=== PATIENT | male | born 1935 | race Caucasian/White ===

== ENCOUNTER → 2020-12-26 | Outpatient (CLI) | payer MEDICARE ==
[~2020-12-26] MED LIST: ASPIRIN EC81 MG PO; AZITHROMYCIN250 MG PO; DECADRON6 MG PO; FLOMAX0.4 MG PO; GLIPIZIDE5 MG PO; HYDROCODON-ACE1 EAC4 PO; LEVOTHYROXINE50 MC1 PO; LOVASTATIN20 MG PO; METFORMIN HCL1000 MG PO; METOPROLOL TAR100 MG PO; OMNICEF 300 MG300 MG PO; PROTONIX 40 MG40 M1 PO; PROTONIX40 MG PO; REMERON15 MG PO; TRAZODONE HCL50 MG PO; VENTOLIN HFA 66.7 GM INH; VITAMIN C 500500 MG PO
== END ==
LOC: LBRF 20:05
DX: Z53.8 Procedure and treatment not carried out for other reasons (principal)
CPT/HCPCS: 87081; 87880

== ENCOUNTER 2020-12-29 21:33 | Inpatient (IN) | payer MEDICARE ==
[~2020-12-29] VITALS: Ht 180.3 cm; Wt 83.9 kg
[2020-12-29 22:56] LABS: HEMOGLOBIN 10.5 gm/dl (14.0-17.5); RED BLOOD COUNT 4.13 M/UL (4.20-5.50); WHITE BLOOD COUNT 4.1 K/UL (4.5-11.0)
[2020-12-30 06:40] LABS: HEMOGLOBIN 10.6 gm/dl (14.0-17.5); RED BLOOD COUNT 4.17 M/UL (4.20-5.50)
[2020-12-30 06:43] LABS: WHITE BLOOD COUNT 6.4 K/UL (4.5-11.0)
[2020-12-30] MEDS ORDERED: METFORMIN HCL1000 MG PO (11:03)
[2020-12-30] MEDS ORDERED: METOPROLOL TAR100 MG PO (11:04)
[2020-12-30] MEDS ORDERED: LOVASTATIN20 MG PO (11:04)
[2020-12-30] MEDS ORDERED: LEVOTHYROXINE50 MC1 PO (11:04)
[2020-12-30] MEDS ORDERED: HYDROCODON-ACE1 EAC4 PO (11:04)
[2020-12-30] MEDS ORDERED: ASPIRIN EC81 MG PO (11:05)
[2020-12-30] MEDS ORDERED: AZITHROMYCIN250 MG PO (13:14)
[2020-12-30] MEDS ORDERED: OMNICEF 300 MG300 MG PO (13:15)
[2020-12-30] MEDS ORDERED: DECADRON6 MG PO (13:15)
[2020-12-30] MEDS ORDERED: PROTONIX40 MG PO (13:17)
[2020-12-30] MEDS ORDERED: VITAMIN C 500500 MG PO (13:17)
[2020-12-30] MEDS ORDERED: VENTOLIN HFA 66.7 GM INH (13:17)
== END 2020-12-30 15:17 | disposition left against medical advice (07) | DRG 177 ==
LOC: ER1 21:33 → CDU 23:06 → MED SURG 4 23:06
PROVIDERS: Internal Medicine; Physician Assistant; ADMIT Internal Medicine
PROC: 8E0ZXY6 Isolation (ICD-10-PCS; principal; 2020-12-29)
PROC: XW033E5 Introduction of Remdesivir Anti-infective into Peripheral Vein, Percutaneous Approach, New Technology Group 5 (ICD-10-PCS; 2020-12-29)
PROC: 3E0333Z Introduction of Anti-inflammatory into Peripheral Vein, Percutaneous Approach (ICD-10-PCS; 2020-12-30)
DX: U07.1 COVID-19 (principal); J12.82 Pneumonia due to coronavirus disease 2019; J96.01 Acute respiratory failure with hypoxia; J15.9 Unspecified bacterial pneumonia; I26.99 Other pulmonary embolism without acute cor pulmonale; D68.69 Other thrombophilia; N17.9 Acute kidney failure, unspecified; E87.1 Hypo-osmolality and hyponatremia; J44.0 Chronic obstructive pulmonary disease with (acute) lower respiratory infection; J44.1 Chronic obstructive pulmonary disease with (acute) exacerbation; E44.0 Moderate protein-calorie malnutrition; E87.2 Acidosis; N18.9 Chronic kidney disease, unspecified; E11.22 Type 2 diabetes mellitus with diabetic chronic kidney disease; D50.9 Iron deficiency anemia, unspecified; E03.9 Hypothyroidism, unspecified; I25.10 Atherosclerotic heart disease of native coronary artery without angina pectoris; D69.6 Thrombocytopenia, unspecified; E11.40 Type 2 diabetes mellitus with diabetic neuropathy, unspecified; I12.9 Hypertensive chronic kidney disease with stage 1 through stage 4 chronic kidney disease, or unspecified chronic kidney disease; Z82.49 Family history of ischemic heart disease and other diseases of the circulatory system; Z68.25 Body mass index [BMI] 25.0-25.9, adult; Z95.1 Presence of aortocoronary bypass graft; Z79.84 Long term (current) use of oral hypoglycemic drugs
CPT/HCPCS: 36415; 36600; 71045; 71275; 80053; 82550; 82553; 82607; 82728; 82746; 82803; 82962; 83036; 83540; 83550; 83615; 83874; 84484; 85025; 85027; 85045; 85379; 86140; 87040; 87070; 87081; 87205; 87880; 93005; 99285; C9113; G0378; J0696; J1100; J1650; J7030; Q9967

== ENCOUNTER 2021-01-08 15:28 | Emergency (ER) | payer MEDICARE, MEDICAID ==
[~2021-01-08 15:28] MED LIST changes: -FLOMAX0.4 MG PO; -GLIPIZIDE5 MG PO; -PROTONIX 40 MG40 M1 PO; -REMERON15 MG PO; -TRAZODONE HCL50 MG PO
[2021-01-08 16:26] LABS: HEMOGLOBIN 12.6 gm/dl (14.0-17.5); RED BLOOD COUNT 4.97 M/UL (4.20-5.50); WHITE BLOOD COUNT 12.8 K/UL (4.5-11.0)
== END 2021-01-08 20:55 | disposition other institution (70) ==
LOC: ER1 15:28
PROVIDERS: Emergency Medicine
DX: A41.9 Sepsis, unspecified organism (principal); U07.1 COVID-19; J12.82 Pneumonia due to coronavirus disease 2019; E11.65 Type 2 diabetes mellitus with hyperglycemia; E87.1 Hypo-osmolality and hyponatremia; I25.10 Atherosclerotic heart disease of native coronary artery without angina pectoris; I10 Essential (primary) hypertension; Z95.1 Presence of aortocoronary bypass graft
CPT/HCPCS: 36600; 71045; 80053; 82550; 82553; 82803; 83605; 83874; 83880; 84484; 85025; 87040; 93005; 94640; 94664; 96374; 96375; 99285; J0692; J1100; J3370; J7050

== ENCOUNTER 2021-01-20 13:57 | Inpatient (IN) | payer MEDICARE, MEDICAID ==
[~2021-01-20] VITALS: Ht 177.8 cm; Wt 42.4 kg
[2021-01-20 14:31] LABS: HEMOGLOBIN 9.3 gm/dl (14.0-17.5); RED BLOOD COUNT 3.59 M/UL (4.20-5.50); WHITE BLOOD COUNT 12.3 K/UL (4.5-11.0)
[2021-01-20] MEDS ORDERED: REMERON15 MG PO (20:31)
[2021-01-20] MEDS ORDERED: GLIPIZIDE5 MG PO (20:33)
[2021-01-20 20:52] LABS: RED BLOOD COUNT 3.17 M/UL (4.20-5.50); WHITE BLOOD COUNT 7.2 K/UL (4.5-11.0)
[2021-01-21 03:28] LABS: HEMOGLOBIN 8.6 gm/dl (14.0-17.5); RED BLOOD COUNT 3.24 M/UL (4.20-5.50)
[2021-01-21 03:29] LABS: WHITE BLOOD COUNT 5.3 K/UL (4.5-11.0)
[2021-01-21 04:06] LABS: BUN/CREATININE RATIO 54 (0-10)
[2021-01-21 08:20] LABS: HEMOGLOBIN 8.3 gm/dl (14.0-17.5); RED BLOOD COUNT 3.15 M/UL (4.20-5.50)
[2021-01-21 13:51] LABS: HEMOGLOBIN 8.1 gm/dl (14.0-17.5); RED BLOOD COUNT 3.05 M/UL (4.20-5.50)
[2021-01-21 13:52] LABS: WHITE BLOOD COUNT 6.6 K/UL (4.5-11.0)
[2021-01-21 20:32] LABS: HEMOGLOBIN 7.1 gm/dl (14.0-17.5); WHITE BLOOD COUNT 7.7 K/UL (4.5-11.0)
[2021-01-21 20:38] LABS: RED BLOOD COUNT 2.69 M/UL (4.20-5.50)
[2021-01-22 02:43] LABS: HEMOGLOBIN 7.7 gm/dl (14.0-17.5); RED BLOOD COUNT 2.88 M/UL (4.20-5.50); WHITE BLOOD COUNT 9.5 K/UL (4.5-11.0)
[2021-01-22 04:31] LABS: BUN/CREATININE RATIO 53 (0-10)
--- NOTE | 2021-01-22 06:12 | NUR ---
0350 PT ARRIVED TO ICU 0400 MD HALE AT BEDSIDE, VERBAL ORDER TO TITRATE LEVO TO 30. ORDERS PLACED FOR LABS. ORDERS TO MAINTAIN SBP > 120. 0510 MD HALE AWARE OF RECENT LABS (LACTIC, HGB). ORDERS TO STOP IVF AND TO MAINTAIN MAP > 65.
--- NOTE | 2021-01-22 06:28 | NUR ---
SEE PAPER CHART FOR Q15M VS.
[2021-01-22 06:47] LABS: HEMOGLOBIN 7.6 gm/dl (14.0-17.5)
[2021-01-22 09:50] LABS: HEMOGLOBIN 10.1 gm/dl (14.0-17.5)
[2021-01-22 11:43] LABS: HEMOGLOBIN 9.9 gm/dl (14.0-17.5)
[2021-01-22 15:09] LABS: HEMOGLOBIN 9.7 gm/dl (14.0-17.5)
[2021-01-22 18:44] LABS: HEMOGLOBIN 9.8 gm/dl (14.0-17.5)
[2021-01-23 05:28] LABS: HEMOGLOBIN 9.6 gm/dl (14.0-17.5)
[2021-01-23 05:29] LABS: RED BLOOD COUNT 3.39 M/UL (4.20-5.50)
[2021-01-23 05:43] LABS: BUN/CREATININE RATIO 36 (0-10)
[2021-01-24 04:56] LABS: HEMOGLOBIN 8.7 gm/dl (14.0-17.5); RED BLOOD COUNT 3.06 M/UL (4.20-5.50); WHITE BLOOD COUNT 8.8 K/UL (4.5-11.0)
[2021-01-24 05:19] LABS: BUN/CREATININE RATIO 27 (0-10)
[2021-01-25 05:35] LABS: RED BLOOD COUNT 2.82 M/UL (4.20-5.50)
[2021-01-25 05:37] LABS: WHITE BLOOD COUNT 4.7 K/UL (4.5-11.0)
[2021-01-25 06:00] LABS: BUN/CREATININE RATIO 20 (0-10)
[2021-01-25 18:31] LABS: HEMOGLOBIN 8.1 gm/dl (14.0-17.5)
[2021-01-26 06:58] LABS: RED BLOOD COUNT 2.85 M/UL (4.20-5.50)
[2021-01-26 08:12] LABS: BUN/CREATININE RATIO 19 (0-10)
[2021-01-27 05:11] LABS: HEMOGLOBIN 7.8 gm/dl (14.0-17.5); RED BLOOD COUNT 2.73 M/UL (4.20-5.50)
[2021-01-27 05:15] LABS: WHITE BLOOD COUNT 2.7 K/UL (4.5-11.0)
[2021-01-27 05:26] LABS: BUN/CREATININE RATIO 26 (0-10)
[2021-01-28 05:36] LABS: HEMOGLOBIN 9.1 gm/dl (14.0-17.5); WHITE BLOOD COUNT 3.2 K/UL (4.5-11.0)
[2021-01-28 05:41] LABS: RED BLOOD COUNT 3.33 M/UL (4.20-5.50)
[2021-01-28 05:55] LABS: BUN/CREATININE RATIO 18 (0-10)
[2021-01-29 05:41] LABS: HEMOGLOBIN 8.7 gm/dl (14.0-17.5); RED BLOOD COUNT 3.16 M/UL (4.20-5.50); WHITE BLOOD COUNT 3.8 K/UL (4.5-11.0)
[2021-01-29 06:02] LABS: BUN/CREATININE RATIO 17 (0-10)
[2021-01-30 05:09] LABS: RED BLOOD COUNT 3.32 M/UL (4.20-5.50); WHITE BLOOD COUNT 3.2 K/UL (4.5-11.0)
[2021-01-30 05:31] LABS: BUN/CREATININE RATIO 14 (0-10)
[2021-01-30] MEDS ORDERED: PROTONIX 40 MG40 M1 PO (09:53)
[2021-01-30] MEDS ORDERED: TRAZODONE HCL50 MG PO (09:53)
[2021-01-30] MEDS ORDERED: METOPROLOL TAR100 MG PO (09:53)
[2021-01-30] MEDS ORDERED: FLOMAX0.4 MG PO (10:00)
== END 2021-01-30 12:10 | disposition home or self-care (01) | DRG 377 ==
LOC: ER1 13:57 → CCU 18:45 → CDU 18:45 → PROG CARE 18:45 → CCU 01-22 05:34
PROVIDERS: Emergency Medicine; Internal Medicine; Internal Medicine Gastroenterology; ADMIT Internal Medicine
PROC: 30233N1 Transfusion of Nonautologous Red Blood Cells into Peripheral Vein, Percutaneous Approach (ICD-10-PCS; 2021-01-20)
PROC: 0BH17EZ Insertion of Endotracheal Airway into Trachea, Via Natural or Artificial Opening (ICD-10-PCS; 2021-01-22)
PROC: 5A1945Z Respiratory Ventilation, 24-96 Consecutive Hours (ICD-10-PCS; 2021-01-22)
PROC: 02HV33Z Insertion of Infusion Device into Superior Vena Cava, Percutaneous Approach (ICD-10-PCS; 2021-01-22)
PROC: B548ZZA Ultrasonography of Superior Vena Cava, Guidance (ICD-10-PCS; 2021-01-22)
PROC: 0W3P8ZZ Control Bleeding in Gastrointestinal Tract, Via Natural or Artificial Opening Endoscopic (ICD-10-PCS; 2021-01-22)
PROC: 3E033XZ Introduction of Vasopressor into Peripheral Vein, Percutaneous Approach (ICD-10-PCS; principal; 2021-01-22 08:43)
PROC: B24BZZ4 Ultrasonography of Heart with Aorta, Transesophageal (ICD-10-PCS; 2021-01-23)
DX: K26.4 Chronic or unspecified duodenal ulcer with hemorrhage (principal); I21.A1 Myocardial infarction type 2; J96.01 Acute respiratory failure with hypoxia; I46.8 Cardiac arrest due to other underlying condition; R57.1 Hypovolemic shock; R57.0 Cardiogenic shock; E43 Unspecified severe protein-calorie malnutrition; D62 Acute posthemorrhagic anemia; D61.818 Other pancytopenia; M31.30 Wegener's granulomatosis without renal involvement; E87.1 Hypo-osmolality and hyponatremia; E87.2 Acidosis; Z68.1 Body mass index [BMI] 19.9 or less, adult; I25.10 Atherosclerotic heart disease of native coronary artery without angina pectoris; I12.9 Hypertensive chronic kidney disease with stage 1 through stage 4 chronic kidney disease, or unspecified chronic kidney disease; D69.6 Thrombocytopenia, unspecified; Z86.16 Personal history of COVID-19; E03.9 Hypothyroidism, unspecified; K21.00 Gastro-esophageal reflux disease with esophagitis, without bleeding; J44.9 Chronic obstructive pulmonary disease, unspecified; D63.1 Anemia in chronic kidney disease; I08.0 Rheumatic disorders of both mitral and aortic valves; E87.6 Hypokalemia; E11.22 Type 2 diabetes mellitus with diabetic chronic kidney disease; N18.30 Chronic kidney disease, stage 3 unspecified; Z79.82 Long term (current) use of aspirin; Z79.01 Long term (current) use of anticoagulants; Z79.4 Long term (current) use of insulin; Z95.1 Presence of aortocoronary bypass graft; Z87.01 Personal history of pneumonia (recurrent); Z82.49 Family history of ischemic heart disease and other diseases of the circulatory system
CPT/HCPCS: ECHO; 0240U; 31500; 36415; 36430; 36600; 71045; 80048; 80053; 80202; 82272; 82550; 82553; 82803; 82962; 83540; 83550; 83605; 83874; 83880; 84132; 84484; 85014; 85018; 85025; 85027; 85045; 85362; 85384; 85610; 86140; 86850; 86900; 86901; 86920; 87040; 87086; 93005; 93306; 94002; 94003; 94640; 94664; 94760; 97116-GP-CQ; 97161; 97530-GP-CQ; 99285; A6212; C1751; C9113; J0171; J0330; J1160; J1756; J1940; J2250; J2370; J2543; J2704; J2765; J3010; J3370; J7030; J7040; J7050; J7070; P9016

== ENCOUNTER 2022-05-25 14:15 | Emergency (ER) | payer MEDICARE ==
[~2022-05-25 14:15] MED LIST changes: +FLOMAX0.4 MG PO; +GLIPIZIDE5 MG PO; +PROTONIX 40 MG40 M1 PO; +REMERON15 MG PO; +TRAZODONE HCL50 MG PO
[2022-05-25 17:34] LABS: HEMOGLOBIN 12.7 gm/dl (14.0-17.5); RED BLOOD COUNT 4.53 M/UL (4.20-5.50)
[2022-05-25] MEDS ORDERED: CLINDAMYCIN HC300 MG PO (20:02)
[2022-05-25] MEDS ORDERED: BACTROBAN OINT22 GM EXT (20:02)
== END 2022-05-25 20:35 | disposition home or self-care (01) ==
LOC: ER1 14:15
PROVIDERS: Physician Assistant
DX: L03.312 Cellulitis of back [any part except buttock and flank] (principal); E11.9 Type 2 diabetes mellitus without complications; E78.5 Hyperlipidemia, unspecified; I10 Essential (primary) hypertension; Z95.1 Presence of aortocoronary bypass graft
CPT/HCPCS: 72129; 72132; 80053; 85025; 85652; 86140; 99284; Q9967